=== PATIENT | female | born 2000 | race Caucasian/White ===

== ENCOUNTER 2021-11-19 11:20 | Emergency (ER) | payer OTHER, SELFPAY ==
[2021-11-19 11:41] VITALS: BP 146/75; PULSE 87; RESP 16; TEMP 36.6; O2SAT 99
--- NOTE | 2021-11-19 13:08 | ED.FEMALEGU ---
HPI - Female Genitourinary General Chief complaint: Urogenital-Female Stated complaint: uti Time Seen by Provider: 11/19/21 13:09 Source: patient, RN notes reviewed and old records reviewed Mode of arrival: ambulatory Limitations: no limitations History of Present Illness HPI Narrative: 21-year-old female who presents to express care with complaints of UTI symptoms since Wednesday which include frequency urethral pain which is worse with urination. Patient has been taking Azo for her symptoms with last dose of Azo at 400 today. Patient denies any fevers, chills or sweats, denies any vaginal discharge or itching or any concern for STD exposure. Patient reports some suprapubic discomfort denies any CVA tenderness. MD elicited complaint: UTI Onset (ago): day(s) (3) Severity scale (1-10): 5 Treatment prior to arrival: OTC urinary analgesics Related Data Home Medications Medication Instructions Recorded Confirmed drospirenone 3 mg-ethinyl tablet 11/19/21 estradiol 0.03 mg tablet Allergies Allergy/AdvReac Type Severity Reaction Status Date / Time No Known Allergies Allergy Unverified 04/28/15 18:42 Review of Systems Review of Systems: CONSTITUTIONAL: Denies fever, chills, or sweats. EYES: Denies visual changes, redness, or discharge. ENT: Denies rhinorrhea, congestion, sore throat, or otalgia. CARDIOVASCULAR: Denies chest pain, palpitations, or edema. RESPIRATORY: Denies cough or dyspnea. GASTROINTESTINAL:positive for suprapubic abdominal pain,no nausea, vomiting, or diarrhea, no CVA tenderness GENITOURINARY positive dysuria or hematuria. SKIN: Denies rash or itching. MUSCULOSKELETAL: Denies back pain, joint pain, or myalgia. NEUROLOGIC: Denies headache, numbness, or weakness. PSYCHIATRIC: Denies anxiety or depression. [facility] Surgical History Surgical History (Updated 11/22/21 @ 10:41 by Gabriela Abbott NP) H/O tooth extraction Family History Family History (Updated 11/22/21 @ 10:42 by Gabriela Abbott NP) Other Diabetes mellitus Social History Social History (Updated 11/22/21 @ 10:42 by Gabriela Abbott NP) Smoking status: Current every day smoker Tobacco type: e-cigarettes/vaping Alcohol intake: current Alcohol use details: social Living arrangements: with family Gender identity (if verbalized by the patient): Female Exam Narrative: GENERAL: Well-appearing, well-nourished, obese and in no acute distress. HEAD: Normocephalic, atraumatic. EYES: PERRLA and EOMI. ENT: Nares clear, no rhinorrhea epistaxis. Mucous membranes moist.TM's normal with good light reflex, throat pink with no lesions or exudates or tonsil swelling NECK: Supple.no lymphadenopathy CHEST: Clear to auscultation. No respiratory distress.SAO2 on room air 99% on room air HEART: Regular rate and rhythm. No murmur heard. Normal peripheral pulses. ABDOMEN: Soft tender over suprapubic, nondistended, normal active bowel sounds.No CVA tenderness EXTREMITIES: Normal range of motion. no edema SKIN: Warm, dry, no rash. NEURO: No focal deficits. Alert and oriented x3. Course Course Level of Care: Express Care Visit Vital Signs Vital signs: Vital Signs Temperature 36.6 C 11/19/21 11:41 Pulse Rate 87 11/19/21 11:41 Respiratory Rate 16 11/19/21 11:41 Blood Pressure 146/75 H 11/19/21 11:41 Pulse Oximetry 99 11/19/21 11:41 Oxygen Delivery Room Air 11/19/21 11:41 Temperature 36.6 C 11/19/21 11:41 Pulse Rate 87 11/19/21 11:41 Respiratory Rate 16 11/19/21 11:41 Blood Pressure 146/75 H 11/19/21 11:41 Pulse Oximetry 99 11/19/21 11:41 Oxygen Delivery Room Air 11/19/21 11:41 MDM - Female Genitourinary Differential Diagnosis Differential diagnosis: Likely urinary tract infection, cervicitis, cystitis and other (UTI symptoms) Medical Records Attestation: I reviewed the patient's medical records. Lab Data Lab results narrative: urine dip unable to perform due to concentration of
== END 2021-11-19 13:23 | disposition home or self-care (01) ==
PROVIDERS: Emergency Provider Registered Nurse
DX: N39.0 Urinary tract infection, site not specified (principal); F17.290 Nicotine dependence, other tobacco product, uncomplicated
CPT/HCPCS: 87086; 87088; 87147; 99213; G0463

== ENCOUNTER 2022-04-03 10:07 | Emergency (ER) | payer OTHER, SELFPAY ==
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
[2022-04-03 10:06] VITALS: BP 146/97; PULSE 81; RESP 22; TEMP 36.7; O2SAT 98
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
--- NOTE | 2022-04-03 10:18 | PC.NURSE ---
Patient arrived with c-collar in place. Dr. Dominguez removed c-collar.
[2022-04-03] MEDS: HYDROcodone/acetaminophen (*CRX) 5-325 MG TABLET 1 TAB PO (10:24)
--- NOTE | 2022-04-03 10:25 | PC.NURSE ---
Patient very anxious but able to sit up on stretcher without assistance. Patient able to stand and walk to wheelchair without assistance. Patient taken to xray via xray lift team technician.
[2022-04-03] MEDS: LORazepam (*CRX) 1 MG TABLET PO (11:07)
[2022-04-03 11:10] VITALS: BP 169/83; PULSE 72; RESP 21; O2SAT 100
[2022-04-03 12:39] VITALS: BP 130/80; PULSE 60; RESP 16; O2SAT 100
== END 2022-04-03 12:40 | disposition home or self-care (01) ==
LOC: ANHED 11:36
PROVIDERS: Emergency Provider Emergency Medicine; PCP Nurse Practitioner Family
DX: S20.319A Abrasion of unspecified front wall of thorax, initial encounter (principal); F41.9 Anxiety disorder, unspecified; F17.209 Nicotine dependence, unspecified, with unspecified nicotine-induced disorders; V49.88XA Car occupant (driver) (passenger) injured in other specified transport accidents, initial encounter
CPT/HCPCS: 71046; 99283; A9270